=== PATIENT | male | born 1960 | race Caucasian/White ===

== ENCOUNTER 2016-12-15 15:14 | Emergency (ER) | payer BC, MEDICAID ==
--- OUTSIDE RECORDS SUMMARY | 2016-12-15 18:39 | XMS REPORT | Continuity of Care Document ---
:1960 Author Organization [facility] ([facility]) [place] [address] Phone [phone] Care Team Providers Name Role Phone Provider, No-Primary Care Primary Care Provider Unavailable Source Comments This disclosure is being made pursuant to the Care Everywhere program, applicable federal and state laws, and may not contain all informaitonavailable regarding this patient.[facility] ([facility]) Active Allergies and Adverse Reactions No Known Allergies Current Medications Prescription Sig. Disp. Refills Start Date End Date Status aspirin 81 mg EC tablet Take 81 mg by mouth Active daily. lisinopril 40 mg tablet Take 40 mg by mouth Active daily. Active Problems Problem Noted Date S/P MCL (medial collateral ligament) repair 12/10/2015 Hypertension 12/10/2015 Previous back surgery 12/10/2015 H/O neck surgery 12/10/2015 Social History Tobacco Use Types Packs/Day Years Used Date Never Smoker Smokeless Tobacco: Never Used Last Filed Vital Signs Vital Sign Reading Time Taken Blood Pressure 146/82 12/10/2015 1:15 PM CDT Pulse 78 12/10/2015 1:15 PM CDT Temperature 36.5 C (97.7 F) 12/10/2015 1:15 PM CDT Respiratory Rate - - Height 1.753 m (5' 9") 12/10/2015 1:15 PM CDT Weight 131.543 kg (290 lb) 12/10/2015 1:15 PM CDT Body Mass Index 42.81 12/10/2015 1:15 PM CDT Oxygen Saturation - - Plan of Care Health Maintenance Due Date Last Done Comments HCV Screening 1960 Hepatitis B Vaccine (1 of 3 - Primary Series) 1960 Tdap Vaccine 1971 Lipid Disorder Screening 1978 MMR Vaccine 1978 Td Vaccine 1978 Colonoscopy 2010 Prostate Cancer Screening 2010 Influenza Vaccine: Seasonal (#1) 04/12/2016 Results from Last 3 Months Not on file
--- NOTE | 2016-12-15 19:22 | ERNOTE ---
Head Injury HPI - Narrative Date of Service: 12/15/16 - General Injury to: head Time Seen by Provider: 12/15/16 17:24 Source: patient, family, RN notes reviewed Exam Limitations: no limitations - Immun/Allergies/Home Medications Immunization: IMMUNIZATION HX History of Influenza Vaccine No Allergies/Adverse Reactions: Allergies Allergy/AdvReac Type Severity Reaction Status Date / Time codeine AdvReac Mild DIZZINESS, Verified 12/15/16 15:42 EXCESSIVE DROWSINESS Home Medications: HOME MEDICATIONS Aspirin [Aspirin EC] 81 mg PO DAILY 11/07/15 [Last Taken Unknown] Lisinopril [Zestril] 20 mg PO DAILY 11/07/15 [Last Taken Unknown] Cyclobenzaprine HCl [Flexeril] 10 mg PO TID PRN #30 tab 12/15/16 [Last Taken Unknown] - History of Present Illness Narrative: 56 y/o male ambulatory to the ED with his for an injury to his head/neck that occurred on 12/05/16. He was at work when a stack of boxes began falling over. He attempted to brace them with his body, but one of them fell and struck him in the back of the head. He reports that it was a box of cat litter than weighed approximately 45 pounds. He states he was not knocked down. He did not lose consciousness. He has been having neck pain and stiffness, along with numbness and tingling in the left arm since then. He has a history of neck pain and 2 cervical spine surgeries. The most recent was in 2002. He took Tramadol twice at night since the injury to help him sleep. He has not been taking anything else for pain. Occurred: other Location Occurred: work Head Injury Location: occipital Method of Injury: Reports: direct blow. Denies: fell Loss of Consciousness: Reports: no loss of consciousness, remembers event Associated Symptoms: Denies: other injuries Review of Systems - Review of Systems Constitutional: Absent: recent illness, fever, malaise EYE: Absent: eye pain, vision changes ENT: Present: no symptoms reported Respiratory: Absent: shortness of breath, cough Cardiology: Absent: chest pain, edema Gastrointestinal/Abdominal: Absent: nausea, vomiting Genitourinary: Present: no symptoms reported Musculoskeletal: Present: back pain, muscle pain, neck pain. Absent: joint pain , joint swelling Skin: Absent: lesions, lumps, change in color Neurological: Present: numbness, tingling. Absent: headache, dizziness/light- headedness, weakness Endocrine: Present: no symptoms reported Hematologic/Lymphatic: Present: no symptoms reported Psych: Present: no symptoms reported - Patient's Past Medical History Patient History - Medical: Arthritis, Obesity, Other Patient History - Cardiac/Respiratory: Hypertension Patient History - Cancer: No Hx of Cancer Patient History - Surgical Procedures: Back Surgery, Colonoscopy, Other Patient History - Other: None - Family History Father Family History - Medical: No pertinent hx Family History - Cardiac/Respiratory: Other Mother Family History - Medical: Family History - Cardiac/Respiratory: No pertinent hx - Social History Living Situations: home Abuse History: No History of abuse Psych History: No pertinent hx Smoking Status: Never smoker Have you smoked in the past 12 months: No Do you dip or chew tobacco: No Alcohol Use: none Drug Use: none - Immunizations History of Influenza Vaccine: No Physical Exam - Physical Exam General Appearance: Present: wd/wn, alert, no apparent distress, other - appropriately dressed and groomed, clean Neck: Present: normal inspection, limited range of motion - pain with lateral rotation in both directions, very limited ROM with extension. Absent: tender posterior midline Respiratory: Present: no respiratory distress, normal breath sounds, no accessory muscle use, lungs clear Cardiovascular/Chest: Present: regular rate, rhythm, no murmur, normal peripheral pulses Back Exam: Present: normal inspection, no vertebral tenderness Extremity Exam: Present: normal inspection, normal range of motion, no edema Neurological Exam: Present: alert, oriented, normal mood/affect, no motor/ sensory deficits Skin Exam: Present: normal color, warm/dry ED Progress - Vital Signs Patient's Vital Signs:: I have reviewed the patient's vital signs. Vital Signs: Vital Signs 12/15/16 12/15/16 15:35 18:38 Temperature 36.6 C 37.0 C Pulse Rate 85 86 Respiratory 16 14 Rate Blood Pressure 179/108 166/112 O2 Sat by Pulse 97 95 Oximetry - CT/Ultrasound CT/Ultrasound Narrative: Noncontrast cervical spine CT: IMPRESSION: 1. PREVIOUS ANTERIOR FUSION INVOLVING C5, C6, AND C7 WITH ASSOCIATED METALLIC ARTIFACT. 2. FUSION OF THE C4/5 DISC SPACE. 3. VARYING DEGREES OF BONY FUSION WITHIN THE FACET JOINTS AT C4-5, C5-6, AND C6-7. 4. PREVERTEBRAL SOFT TISSUES WITHIN NORMAL LIMITS. 5. NO DEFINABLE ACUTE OSSEOUS ABNORMALITY ON THIS STUDY; CLINICAL CORRELATION IS REQUIRED. Electronically signed by Vinay Mcdaniel M.D.. - Progress/Reassessment Chief Complaint: Neck Pain/Injury Progress:: Unchanged Plan - Plan Plan: Declined need for pain medication while in department. Rx given for Flexeril. Work restrictions given. To f/u in occupational health in 1 week. Departure Clinical Impression: Acute cervical sprain Qualifiers: Encounter type: initial encounter Qualified Code(s): S13.9XXA - Sprain of joints and ligaments of unspecified parts of neck, initial encounter - Departure Disposition: Home Follow Up Needed Condition: Stable Instructions: Cervical Sprain Additional Instructions: See occupational health instruction sheet Prescriptions: Cyclobenzaprine HCl [Flexeril] 10 mg PO TID PRN #30 tab PRN Reason: MUSCLE SPASMS
[2016-12-15 20:33] VITALS: BP 162/100
== END 2016-12-15 19:27 | disposition home or self-care (01) ==
LOC: ER 15:14
DX: S13.9XXA Sprain of joints and ligaments of unspecified parts of neck, initial encounter (principal); I10 Essential (primary) hypertension; X58.XXXA Exposure to other specified factors, initial encounter; Y93.89 Activity, other specified; Y92.9 Unspecified place or not applicable; Y99.0 Civilian activity done for income or pay

== ENCOUNTER 2017-02-18 08:49 | Day surgery (SDC) | payer BC ==
--- OUTSIDE RECORDS SUMMARY | 2017-02-18 08:52 | XMS REPORT | Continuity of Care Document ---
:1960 Author Organization [facility] ([facility]) Address [place] [address] Phone [phone] Care Team Providers Name Role Phone Provider, No-Primary Care Primary Care Provider Unavailable Source Comments This disclosure is being made pursuant to the Care Everywhere program, applicable federal and state laws, and may not contain all informaitonavailable regarding this patient.[facility] ([facility]) Active Allergies and Adverse Reactions No [...]
--- NOTE | 2017-02-18 10:22 | OR ---
Anesthesia Pre Procedure Eval Date of Service: 02/18/17 Pre Procedure Evaluation: Last Vital Signs Temp 36.8 C 02/18/17 09:13 Pulse 68 02/18/17 09:13 Resp 16 02/18/17 09:13 BP 170/128 02/18/17 09:13 Pulse Ox 100 02/18/17 09:13 Anesthesia Pre Procedure Evaluation DATE: 02/18/2017. TIME: 1010. INDICATIONS: Mid back pain. Multilevel thoracic disc disease. PAST MEDICAL HISTORY: Is a 56-year-old male with a history of cervical, lumbar, and now thoracic disc disease. He has had cervical spinal fusion and lumbar surgery in the past. This is his first thoracic epidural steroid injection EXAM: MRI report and films were reviewed. Pain is 7/10 on pain scale at present. ASSESSMENT OF MEDICAL STATUS: O.K. to proceed with POOJA. PLANNED PROCEDURE: Fluoroscopic guided epidural steroid injection T 5-6. Home Medications: HOME MEDICATIONS Aspirin [Aspirin EC] 81 mg PO DAILY 11/07/15 [Last Taken Unknown] Pravastatin Sodium [Pravachol] 20 mg PO HS 12/22/16 [Last Taken Unknown] Lisinopril [Zestril] 40 mg PO DAILY 02/17/17 [Last Taken 02/17/17 22:00] Lisinopril/Hydrochlorothiazide [Zestoretic 20-25 mg Tablet] 1 each PO DAILY 04/28 [Last Taken 02/17/17 22:00] amLODIPine BESYLATE [Norvasc] 10 mg PO DAILY 02/17/17 [Last Taken Unknown]
[2017-02-18] MEDS ORDERED: IOPAMIDOL 20 ML VIAL IJ ONE (10:34)
[2017-02-18] MEDS ORDERED: LIDOCAINE HCL/PF 5 ML VIAL IJ ONE ×2 (10:34)
[2017-02-18] MEDS ORDERED: DEXAMETHASONE SOD PHOSPHATE 10 MG/ML VIAL IJ ONE (10:34)
--- NOTE | 2017-02-18 11:25 | OR ---
Anesthesia Procedure Note - Anesthesia Procedure Note Date of Service: 02/18/17 Narrative: Vital Signs - Last Taken Temp 36.8 C 02/18/17 09:13 Pulse 50 L 02/18/17 11:10 Resp 16 02/18/17 11:10 BP 107/47 02/18/17 11:10 Pulse Ox 93 02/18/17 11:10 O2 Oxygen Delivery Method Room Air 02/18/17 11:17 ANESTHESIA PROCEDURE NOTE Date of Procedure: 02/18/2017. Time of procedure: 1030. Performed by: Keegan Mcclain CRNA Department Store Manager: None. Preprocedure diagnosis: Mid back pain, multilevel thoracic disc disease. Post procedure diagnosis: Same. Procedure: Unsuccessful Fluoroscopic guided epidural Steroid Injection T5-6 and T6-7. Indications: This 56-year-old male with a history of mid back pain. Potential risks and benefits of the procedure were discussed with the patient and consent was obtained. Findings: See below. Details of the procedure: The patient was brought back to operating room #3. The patient was then placed in the prone position to comfort. DuraPrep was applied to the patient's back. Patient was then draped in sterile fashion. Lidocaine 1% was infiltrated to the skin and subcutaneous tissues at the level of the T5-6 interspace using fluoroscopic guidance. The epidural space could not be entered due to bony arthritis using a 20-gauge Tuohy needle with loss-of- resistance technique. A second attempt was made at the lower T6-7 level. This attempt was also unsuccessful in reaching the epidural space. Rather then continuing to proceed further,the procedure was aborted. The Tuohy needle was removed intact. A Band-Aid was applied to the patient's back. The patient was then placed in a supine position for 5 minutes before returning to the ambulatory surgical unit. Total fluoroscopy time: 44 seconds. Cumulative dose: 17.66 mGy. EBL: Minimal. Fluids: N/A. Specimen: N/A. Post procedure condition: The patient tolerated the procedure well. No complications were noted. No motor weaknesses or paresthesias were noted upon discharge. Thank you for this consultation. Keegan Mcclain CRNA
[2017-02-18 12:15] VITALS: BP 145/82
== END 2017-02-18 08:50 | disposition home or self-care (01) ==
LOC: AMB 08:49
PROVIDERS: ATTEND Family Medicine
PROC: 3E0S3BZ Introduction of Anesthetic Agent into Epidural Space, Percutaneous Approach (ICD-10-PCS; 2017-02-18)
PROC: 3E0S33Z Introduction of Anti-inflammatory into Epidural Space, Percutaneous Approach (ICD-10-PCS; principal; 2017-02-18 10:15)
DX: M51.34 Other intervertebral disc degeneration, thoracic region (principal)

== ENCOUNTER 2017-03-19 19:01 | Emergency (ER) | payer OTHER ==
[2017-03-19] MEDS ORDERED: LABETALOL HCL 5 MG/ML VIAL IV ONE ×2 (19:25→19:27)
--- NOTE | 2017-03-19 19:33 | ERNOTE ---
<Praveen Wan - Last Filed: 03/19/17 19:55> Dyspnea - General Presenting Symptoms: shortness of breath Time Seen by Provider: 03/19/17 19:21 Source: patient Exam Limitations: no limitations - Immun/Allergies/Home Medications Immunizations: IMMUNIZATION HX Immunizations Up to Date Yes History of Influenza Vaccine No Hx Pneumococcal Vaccination No Allergies/Adverse Reactions: Allergies codeine Adverse Reaction (Mild, Verified 03/19/17 19:18) DIZZINESS, EXCESSIVE DROWSINESS Home Medications: HOME MEDICATIONS Aspirin [Aspirin EC] 81 mg PO DAILY 11/07/15 [Last Taken Unknown] Pravastatin Sodium [Pravachol] 20 mg PO HS 12/22/16 [Last Taken Unknown] Lisinopril [Zestril] 40 mg PO DAILY 02/17/17 [Last Taken 02/17/17 22:00] amLODIPine BESYLATE [Norvasc] 10 mg PO DAILY 02/17/17 [Last Taken Unknown] - History of Present Illness Narrative: 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 Subsequent to that, while fighting significant pain, the patient's blood pressure is starting to go up significantly. Patient is currently on lisinopril and amlodipine and his blood pressure in triage today was 217/130. Due to the high blood pressure, I suspect, the patient is getting short of breath and has been getting increasingly worried. Severity: moderate Treatment GRAIN WEIGHER: by patient Initiating event: Reports: other - work-related injury Frequency of episodes: Reports: frequent episodes Modifying Factors - (Improves): Reports: nothing, other Modifying Factors (Worsens): Reports: nothing Prior Treatment: Reports: recently seen, treated by physician Review of Systems - Review of Systems Constitutional: Present: See HPI EYE: Present: no symptoms reported ENT: Present: no symptoms reported Respiratory: Present: shortness of breath Cardiology: Present: no symptoms reported Gastrointestinal/Abdominal: Present: no symptoms reported Genitourinary: Present: no symptoms reported Musculoskeletal: Present: no symptoms reported Skin: Present: no symptoms reported Neurological: Present: no symptoms reported Endocrine: Present: no symptoms reported Hematologic/Lymphatic: Present: no symptoms reported Psych: Present: no symptoms reported - Patient's Past Medical History Patient History - Medical: No pertinent hx, Other - work-related cervical spine injury Patient History - Cardiac/Respiratory: Hypertension Patient History - Cancer: No Hx of Cancer Patient History - Surgical Procedures: Back Surgery Patient History - Other: None - Family History Father Family History - Medical: No pertinent hx Family History - Cardiac/Respiratory: Other Mother Family History - Medical: Family History - Cardiac/Respiratory: No pertinent hx - Social History Living Situations: significant other Abuse History: No History of abuse Psych History: No pertinent hx Smoking Status: Never smoker Have you smoked in the past 12 months: No Do you dip or chew tobacco: No Alcohol Use: none Drug Use: none - Immunizations Immunizations Up to Date: Yes Hx Pneumococcal Vaccination: No History of Influenza Vaccine: No Physical Exam - Physical Exam General Appearance: Present: wd/wn, alert, moderate distress Eye Exam: Normal inspection: bilateral, PERRL: bilateral Ears, Nose, Throat: Present: normal ENT inspection, H, normal pharynx Neck: Present: normal inspection, nontender Respiratory: Present: no respiratory distress, normal breath sounds, no accessory muscle use, chest nontender, lungs clear Cardiovascular/Chest: Present: regular rate, rhythm, no murmur, normal peripheral pulses Gastrointestinal/Abdominal: Present: normal bowel sounds, nontender, nondistended, soft, no organomegaly Rectal Exam: Present: deferred Male Genitals Exam: Present: deferred Back Exam: Present: normal inspection, normal range of motion Extremity Exam: Present: normal inspection, non-tender, no edema, normal range of motion Neurological Exam: Present: alert, oriented, normal mood/affect Skin Exam: Present: normal color, warm/dry Lymphatic Exam: Present: no adenopathy ED Progress - Vital Signs Patient's Vital Signs:: I have reviewed the patient's vital signs. Vital Signs: Vital Signs 03/19/17 03/19/17 19:12 19:24 Temperature 37.2 C Pulse Rate 87 83 Respiratory 18 Rate Blood Pressure 217/130 O2 Sat by Pulse 98 Oximetry - EKG EKG read: Interp. by me - patient appears to have borderline LVH, which could be a sequelae of his poorly controlled hypertension - Progress/Reassessment Chief Complaint: Dyspnea - Transfer of Care Physician Sign Out: Praveen Wan Receiving Physician: Tamika Shen Expected Disposition: Discharge Plan - Plan Plan: Patient will have a battery of lab tests undertaken, EKG, chest x-ray and IV labetalol in an attempt to try to get his blood pressure into a reasonable range. Patient is being turned over to Dr. Doherty and she will follow up on all the blood tests and the monitoring of his poorly controlled blood pressure. Departure Clinical Impression: Hypertension Qualifiers: Hypertension type: essential hypertension Qualified Code(s): I10 - Essential ( primary) hypertension - Departure Disposition: Home self-care Condition: Good Additional Instructions: Follow-up with your primary care physician in regards to blood pressure control , please avoid all caffeinated beverages and salty foods. <Tamika Shen - Last Filed: 03/19/17 21:11> Dyspnea - Immun/Allergies/Home Medications Immunizations: IMMUNIZATION HX Immunizations Up to Date Yes History of Influenza Vaccine No Hx Pneumococcal Vaccination No ED Progress - Vital Signs Vital Signs: Vital Signs 03/19/17 03/19/17 03/19/17 19:12 19:24 19:30 Temperature 37.2 C Pulse Rate 87 83 77 Respiratory 18 18 Rate Blood Pressure 217/130 181/103 O2 Sat by Pulse 98 96 Oximetry 03/19/17 03/19/17 03/19/17 19:36 19:37 19:42 Temperature Pulse Rate 72 70 75 Respiratory 16 16 17 Rate Blood Pressure 199/101 199/101 182/101 O2 Sat by Pulse 97 97 97 Oximetry 03/19/17 03/19/17 03/19/17 19:43 19:45 20:10 Temperature Pulse Rate 73 73 69 Respiratory 15 14 14 Rate Blood Pressure 181/101 184/104 166/97 O2 Sat by Pulse 97 96 95 Oximetry 03/19/17 03/19/17 03/19/17 20:14 20:48 20:58 Temperature Pulse Rate 74 72 72 Respiratory 16 14 Rate Blood Pressure 176/99 170/92 170/92 O2 Sat by Pulse 98 94 Oximetry Plan - Plan Plan: This patient was signed out to me by the previous examiner early this patient presented with predominant symptoms of shortness of breath. It was noted shortly after admission to the ER that his blood pressure was elevated. A battery of test results are within normal limits and do not indicate that this patient has had an RI. He has not had any chest pains while in the ER EKG has normal chest x-ray normal IV labetalol and clonidine by mouth helped bring the patient's blood pressure down to 150s over 80s he is stable to go home and follow-up with his primary care doctor for his hypertension.
[2017-03-19 19:45] LABS: Hematocrit 44.2 % (42.0-52.0); Hemoglobin 15.6 gm/dL (13.5-18.0); Mean Cell Volume 89.8 fl (78-100); Mean Corpuscular Hemoglobin 31.7 pg (27-31); Mean Corpuscular Hgb Conc 35.3 g/dl (32-36); Mean Platelet Volume 8.9 fl (6.0-9.5); Neutrophil # 5.7 K/mm3 (1.3-6.0); Neutrophil % 62.3 % (42-75.0); Platelet Count 260 K/mm3 (150-450); Red Blood Count 4.92 M/mm3 (4.7-6.0); Red Cell Distribution Width 12.2 % (11.5-14.0); White Blood Count 9.2 K/mm3 (4.0-10.5)
[2017-03-19 20:11] LABS: ALT 31 U/L (19-67); AST 18 U/L (0-48); Albumin * 4.4 gm/dl (3.4-5.0); Alkaline Phosphatase * 90 U/L (50-170); Anion Gap 15.3 mmol/L (6.8-13.8); BUN/Creatinine Ratio 18.8 (9.0-21.6); Bilirubin, Total 0.5 mg/dL (0.0-1.1); Blood Urea Nitrogen 18 mg/dL (6-23); Ca. Corrected For Albumin 8.8 mg/dL (8.4-10.2); Calcium * 9.4 mg/dL (7.9-10.9); Carbon Dioxide 27.4 mmol/L (24-32.6); Chloride 101 mmol/L (97-106); Glucose * 150 mg/dL (70-110); Magnesium 1.9 mg/dL (1.2-2.8); Potassium 3.7 mmol/L (3.4-4.6); Sodium 140 mmol/L (132-142); Total Protein 7.9 gm/dL (6.2-8.2)
[2017-03-19 20:12] LABS: Troponin I Less than 0.017 ng/ml (0.00-0.10)
[2017-03-19] MEDS ORDERED: CLONIDINE HCL 0.1 MG TABLET PO ONE (20:50)
[2017-03-19] MEDS ORDERED: CLONIDINE HCL 0.1 MG TABLET ONE (20:53)
[2017-03-19 21:36] VITALS: BP 143/85
== END 2017-03-19 21:18 | disposition home or self-care (01) ==
LOC: ER 19:01
DX: I10 Essential (primary) hypertension (principal); X58.XXXA Exposure to other specified factors, initial encounter; Y93.89 Activity, other specified; Y92.9 Unspecified place or not applicable; Y99.0 Civilian activity done for income or pay

== ENCOUNTER 2017-03-20 11:37 | Emergency (ER) | payer OTHER ==
[2017-03-20] MEDS ORDERED: CLONIDINE HCL 0.1 MG TABLET PO ONE (12:55)
[2017-03-20] MEDS ORDERED: CLONIDINE HCL 0.1 MG TABLET ONE ×2 (13:01→13:03)
--- NOTE | 2017-03-20 13:13 | ERNOTE ---
Medical Problem HPI - General Chief Complaint: General Assessment Time Seen by Provider: 03/20/17 12:44 Source: patient Exam Limitations: no limitations - Immun/Allergies/Home Medications Immunizations: IMMUNIZATION HX Immunizations Up to Date Yes History of Influenza Vaccine Yes Hx Pneumococcal Vaccination No Allergies/Adverse Reactions: Allergies codeine Adverse Reaction (Mild, Verified 03/20/17 12:03) DIZZINESS, EXCESSIVE DROWSINESS Home Medications: HOME MEDICATIONS Aspirin [Aspirin EC] 81 mg PO DAILY 11/07/15 [Last Taken Unknown] Pravastatin Sodium [Pravachol] 20 mg PO HS 12/22/16 [Last Taken Unknown] Lisinopril [Zestril] 40 mg PO DAILY 02/17/17 [Last Taken 02/17/17 22:00] amLODIPine BESYLATE [Norvasc] 10 mg PO DAILY 02/17/17 [Last Taken Unknown] Clonidine HCl [Catapres] 0.1 mg PO BID #60 tab 03/20/17 [Last Taken Unknown] - History of Present History Narrative: Patient was seen here last night when he presented with fairly significant hypertension. I started the initial workup and gave the patient 10 mg of labetalol and the care was turned over to Dr. Shen. She subsequently gave the patient 0.1 of clonidine by mouth and his blood pressure returned to a fairly normal range and he felt good and wanted to go home. Unfortunately a prescription was inadvertently not given to the patient for clonidine and his blood pressure spiked back up today. He feels somewhat similar to last night was blood pressure was elevated as well. Timing: constant Severity: mild Review of Systems - Review of Systems Constitutional: Present: See HPI EYE: Present: no symptoms reported ENT: Present: no symptoms reported Respiratory: Present: no symptoms reported Cardiology: Present: no symptoms reported Gastrointestinal/Abdominal: Present: no symptoms reported Genitourinary: Present: no symptoms reported Musculoskeletal: Present: no symptoms reported Skin: Present: no symptoms reported Neurological: Present: no symptoms reported Endocrine: Present: no symptoms reported Hematologic/Lymphatic: Present: no symptoms reported Psych: Present: no symptoms reported - Patient's Past Medical History Patient History - Medical: No pertinent hx, Other Patient History - Cardiac/Respiratory: Hypertension Patient History - Cancer: No Hx of Cancer Patient History - Surgical Procedures: Back Surgery Patient History - Other: None - Family History Father Family History - Medical: No pertinent hx Family History - Cardiac/Respiratory: No pertinent hx, Other Mother Family History - Medical: Family History - Cardiac/Respiratory: Hypertension - Social History Living Situations: spouse Abuse History: No History of abuse Psych History: No pertinent hx Smoking Status: Never smoker Alcohol Use: none Drug Use: none - Immunizations Immunizations Up to Date: Yes Hx Pneumococcal Vaccination: No History of Influenza Vaccine: Yes Physical Exam - Physical Exam General Appearance: Present: wd/wn, alert, mild distress Eye Exam: Normal inspection: bilateral, PERRL: bilateral Ears, Nose, Throat: Present: normal ENT inspection, H, normal pharynx Neck: Present: normal inspection, nontender Respiratory: Present: no respiratory distress, normal breath sounds, no accessory muscle use, chest nontender, lungs clear Cardiovascular/Chest: Present: regular rate, rhythm, no murmur, normal peripheral pulses Gastrointestinal/Abdominal: Present: normal bowel sounds, nontender, nondistended, soft, no organomegaly Rectal Exam: Present: deferred Back Exam: Present: normal inspection, normal range of motion Extremity Exam: Present: normal inspection, non-tender, no edema, normal range of motion Neurological Exam: Present: alert, oriented, normal mood/affect Skin Exam: Present: normal color, warm/dry Lymphatic Exam: Present: no adenopathy ED Progress - Vital Signs Patient's Vital Signs:: I have reviewed the patient's vital signs. Vital Signs: Vital Signs 03/20/17 03/20/17 11:59 13:04 Temperature 37.3 C Pulse Rate 71 76 Respiratory 16 Rate Blood Pressure 192/111 185/109 O2 Sat by Pulse 97 Oximetry - Progress/Reassessment Chief Complaint: General Assessment Progress:: Improved Plan - Plan Plan: Patient appears to respond reasonably to clonidine 0.1 mg and he will be given a prescription for that and he will follow-up with his family physician for any ongoing care. Departure - Departure Clinical Impression: Hypertension Qualifiers: Hypertension type: essential hypertension Qualified Code(s): I10 - Essential ( primary) hypertension Disposition: Home self-care Condition: Good Instructions: Hypertension, [id number] Prescriptions: Clonidine HCl [Catapres] 0.1 mg PO BID #60 tab
[2017-03-20 13:56] VITALS: BP 170/110
== END 2017-03-20 14:07 | disposition home or self-care (01) ==
LOC: ER 11:37
DX: I10 Essential (primary) hypertension (principal)